=== PATIENT | male | born 1975 | race Caucasian/White ===

== ENCOUNTER 2025-05-27 00:04 | Inpatient (IN) | payer OTHER, SELFPAY ==
[2025-05-27] VITALS (33 sets, daily range): BP systolic 102–150; BP diastolic 65–129; PULSE 84–120; RESP 14–92; TEMP 36–36.6; O2SAT 18–98; BMI 29.9; BMI 29.5
--- NOTE | 2025-05-27 00:25 | EKG12_ITS ---
Test Reason : DYSRHYTHMIA Blood Pressure : */* mmHG Vent. Rate : 114 BPM Atrial Rate : 114 BPM P-R Int : 156 ms QRS Dur : 88 ms QT Int : 336 ms P-R-T Axes : 46 90 29 degrees QTcB Int : 463 ms Sinus tachycardia Possible Left atrial enlargement Rightward axis Cannot rule out Septal infarct , age undetermined Abnormal ECG Confirmed by Davey Gamez ([id number]), digital editor RANDY WOLFF ([id number]) on 05/28/2025 10:18:10 AM Referred By: CHELITA Confirmed By: Davey Gamez
[2025-05-27] MEDS: 0.9% Normal Saline (500mL Bag) 500 ML 999 ML IV (00:33)
[2025-05-27 00:36] LABS: Hematocrit 41.7 % (40-54); Hemoglobin 13.6 g/dL (13.0-16.5); Immature Granulocytes Count 0.050 X10^3/uL (0.0-0.0); Mean Corp Hgb Conc 32.6 g/dL (32-36); Mean Corpuscular Volume 81.9 fL (80-94); Mean Platelet Vol. 10.4 fl (6.2-12.0); NRBC Flagged by Analyzer 0 % (0-5); Platelet Count 313 K/mm3 (150-450); RBC Distribution Width CV 12.9 % (11.6-14.6); RBC Distribution Width SD 38.4 fl (35.1-43.9); Red Blood Count 5.09 M/mm3 (4.6-6.2); White Blood Count 11.4 K/mm3 (4.4-11.0)
[2025-05-27 00:45] LABS: Partial Thromboplast Time 27.4 Seconds (24.1-36.2); Prothrombin Time (Protime)PT. 13.9 SECONDS (11.7-14.9)
--- NOTE | 2025-05-27 00:49 | EDS_ITS ---
HPI History of Present Illness Chief Complaint: Shortness of Breath Informant: patient, spouse/S.O. and EMS Narrative Narrative: Patient is a 50-year-old male with recent history of right patellar fracture. Otherwise he states he has no medical conditions and he denies any history of lung pathology such as asthma COPD emphysema or smoking. He states since he injured his right knee he has not really been walking. He states he will still go to work but he sits in a chair with wheels and can roll around. He states that there has been no fevers or chills but starting on Tuesday noticed some mild shortness of breath that worsened today and secondary to this EMS was called. EMS reports that upon evaluation the patient was awake and alert but had increased work of breathing and his room air pulse ox was low at 88 to 89%. [facility] Medical History Knee fracture Home Medications ?Medication ?Instructions ?Recorded ?Last Taken ?Type NK 05/27/25 Unknown History Allergy/AdvReac Type Severity Reaction Status Date / Time No Known Allergies Allergy Verified 05/27/25 00:10 Surgical History (Updated 05/27/25 @ 00:06 by Chela Guzman) History of repair of hiatal hernia Social History Smoking Status: Never smoker ROS ROS ED Constitutional Constitutional ED: Denies chills or fever(s) Eyes Eyes: Denies change in vision ENT ENT ED: Denies rhinorrhea or sore throat Cardiovascular Cardiovascular: Reports palpitations and racing heartbeat; Denies chest pain Respiratory/Chest Respiratory/Chest: Reports dyspnea; Denies cough Gastrointestinal Gastrointestinal: Denies abdominal pain, diarrhea, nausea or vomiting Musculoskeletal Musculoskeletal: Reports other Details: Positive right knee pain ; Denies back pain Integumentary Denies rash Neurologic Neurologic: Denies headache(s) Hematologic/Lymphatic Hematologic/Lymphatic: Denies easy bleeding or easy bruising Allergic/Immunologic Allergic/Immunologic ED: Denies mouth swelling or tongue swelling EXAM Physical Exam Const Vital Signs: 05/27/25 00:04 05/27/25 00:10 05/27/25 00:34 Temperature 97.7 F L Temperature Source Oral Pulse Rate 120 H Respiratory Rate 23 H Respiratory Effort Normal Non-Labored Respiratory Depth Normal Respiratory Pattern Tachypnea Blood Pressure 115/80 Blood Pressure Mean 91 Pulse Ox 89 98 Oxygen Delivery Method Room Air Nasal Cannula Nasal Cannula Oxygen Flow Rate (L/min) 2 2 05/27/25 01:04 05/27/25 02:00 05/27/25 03:00 Temperature Temperature Source Pulse Rate 111 H 107 H 97 Respiratory Rate 21 H 17 16 Respiratory Effort Respiratory Depth Respiratory Pattern Blood Pressure 106/71 113/87 H 111/85 H Blood Pressure Mean 82 95 93 Pulse Ox 97 97 97 Oxygen Delivery Method Nasal Cannula Nasal Cannula Nasal Cannula Oxygen Flow Rate (L/min) 2 1 1 05/27/25 04:00 05/27/25 05:00 05/27/25 06:00 Temperature Temperature Source Pulse Rate 95 93 94 Respiratory Rate 15 14 14 Respiratory Effort Respiratory Depth Respiratory Pattern Blood Pressure 116/86 H 109/84 H 106/86 H Blood Pressure Mean 96 92 92 Pulse Ox 97 98 95 Oxygen Delivery Method Nasal Cannula Nasal Cannula Nasal Cannula Oxygen Flow Rate (L/min) 1 1 1 05/27/25 07:00 Temperature Temperature Source Pulse Rate 91 Respiratory Rate 18 Respiratory Effort Respiratory Depth Respiratory Pattern Blood Pressure 110/87 H Blood Pressure Mean 94 Pulse Ox 98 Oxygen Delivery Method Oxygen Flow Rate (L/min) Positive well nourished and well developed Constitutional Narrative: Patient appears ill and in mild to moderate respiratory distress with tachypnea and accessory muscle use General Appearance ED: well developed; Negative for pallor HEENT Reports moist mucous membranes HEENT Narrative: Normocephalic atraumatic No tongue or lip swelling no oral lesions no airway edema or compromise; no secondary findings in the posterior pharynx to suggest infection Eyes PERRL and EOMs intact bilaterally General Eye ED: Negative for pale conjunctiva or scleral icterus Neck supple and no JVD Chest Wall palpation of chest normal Resp clear to auscultation bilaterally Resp Narrative: Patient is in mild to moderate respiratory distress with tachypnea and accessory muscle use Breath sounds are diminished throughout but overall clear to auscultation without rales wheezes or rhonchi Cardio regular rhythm Rate: tachycardic and other Other Details: Tachycardic rate with regular rhythm No murmurs rubs or gallops Radial and carotid pulses are equal and symmetric GI normal to inspection, nondistended, normoactive bowel sounds, non-tender, non- distended and no masses Auscultation: normoactive bowel sounds Palpation: soft Extremity Extremity Narrative: There is asymmetric swelling of the right lower leg compared to the left. The right leg is roughly 2-3 times bigger than the left Negative Homans' sign bilaterally however All compartments are soft and compressible going against compartment syndrome Patient has mild ecchymosis to the anterior aspect of the right knee consistent with recent trauma and fracture but no overlying erythema or warmth to suggest secondary infection Neuro oriented x3, CN's II-XII intact bilaterally and no sensory deficits noted Sensorium / Orientation: alert Motor Exam: strength 5/5 throughout Psych Psych Narrative: Patient has a flat affect Skin no rashes or lesions noted Skin Narrative: Overlying soft tissue skin changes to the right knee consistent with previous injury as documented above General Skin Exam: Negative for jaundice or pallor MDM MDM MDM Narrative Medical decision making narrative: Patient arrived to the ER hypoxic at roughly 88% on room air and he does not have a known history of lung pathology or require supplemental oxygen at baseline. With his recent knee fracture and report of poor mobilization there is high concern for pulmonary embolus. In order to rule out acute blood loss anemia acute kidney injury electrolyte abnormality or PE versus pneumonia or congestive heart failure basic labs and a CTA were obtained. Labs revealed no clinically significant findings but CTA did reveal a large saddle pulmonary embolus causing heart strain. We do not have vascular surgery present in the ER at this time and therefore the hospitalist recommends we transfer to a facility with this as patient may require intervention. The patient is not hemodynamically unstable as he is only requiring 2 L of nasal cannula oxygen to keep his sats in the mid 90s and his blood pressure has remained stable and with mild hydration his heart rate has improved as well. Therefore he will be started on heparin bolus and drip secondary to the PE but do not feel the need for TNK at this time. The case was discussed with vascular surgeon Dr. Patricia. He states that based on the patient's vitals and CTA read that he feels that the patient is safe for admission to this facility where he can evaluate him later in the day to discuss need for thrombectomy. He does recommend continued monitoring and heparin infusion. The case was then discussed with the hospitalist Dr. Ricardo who evaluated the patient in the ER. Based on the significant heart strain he has concerned the patient could potentially decompensate and recommends admission to the ICU. Therefore the patient will be placed in the intensive care unit for continued monitoring and observation regarding his saddle PE with heart strain History & Record Review Discussion w/independent historian: Patient and Significant other Lab Data Attestation: I reviewed the patient's lab results. Labs: Laboratory Results - last 24 hr 05/26/25 23:45 WBC 11.4 H RBC 5.09 Hgb 13.6 Hct 41.7 MCV 81.9 MCH 26.7 L MCHC 32.6 RDW Std Deviation 38.4 RDW Coeff of Génesis 12.9 Plt Count 313 MPV 10.4 Immature Gran % (Auto) 0.400 Neut % (Auto) 60.2 Lymph % (Auto) 28.8 [place] % (Auto) 9.2 Eos % (Auto) 1.1 Baso % (Auto) 0.3 Absolute Neuts (auto) 6.9 Absolute Lymphs (auto) 3.28 Nucleated RBC % 0 PT 13.9 INR 1.1 APTT 27.4 Sodium 140 Potassium 3.6 Chloride 99 Carbon Dioxide 24.9 Anion Gap 15 BUN 12 Creatinine 1.05 Estim Creat Clear Calc 101.90 Est GFR (MDRD) Non-Af 86 BUN/Creatinine Ratio 11.7 Glucose 126 H Calcium 9.3 Magnesium 2.1 NT pro BNP II 1347 H Radiography Diagnostic Testing: Clinical Impression(s) from Imaging Studies Chest CTA 05/27/25 00:50 IMPRESSION: Saddle pulmonary embolus. Bilateral massive pulmonary emboli in the right, left pulmonary arteries, their lobar and segmental branches. Dilated main pulmonary artery. Dilated right cardiac cavities suggestive of cardiac strain. Right ventricle/left ventricle ratio is 1.2. I discussed the findings with Dr. Mitch Paredes in the emergency department at 1:45 a.m. EST. Reading Location: [place] [address] Management Discussion w/another healthcare provider: Hospitalist, Product Support Consultant and Radiologist Critical Care Time Critical Care Time: Yes Critical care time (excluding procedures): Discussing w/Patient &/or Family/Diesel Engine Erector, Discussing w/Consultants and - (Please note critical care time of 33 minutes) Discharge Plan Triage Chief Complaint: Shortness of Breath ED Provider: Mitch Paredes Dx/Rx/DC Orders Clinical Impression: Acute saddle pulmonary embolism with acute cor pulmonale, Hypoxia Prescriptions: No Action NK Primary Care Provider: Marybel Stephens NP Referrals: Kapper,Mayrbel Kelley ENGINEERING GEOLOGIST, ENGINEERING GEOLOGIST-C [Primary Care Provider] - Print Language: Ukrainian Disposition Disposition: Acute Care Hospital [facility]
--- NOTE | 2025-05-27 00:50 | CT_ITS ---
PROCEDURE: CTA CHEST W/WO CONTRAST 05/27/2025 REASON FOR EXAM: HYPOXIA / ? PE TECHNIQUE: Procedure Code: [id number] Modality: CT Procedure: CTA CHEST W/WO CONTRAST Multiplanar Sagittal and Coronal images were obtained. CONTRAST: Isovue-370 VOLUME: 100 mL One or more dose reduction techniques were used (e.g., Automated exposure control, adjustment of the mA and/or kV according to patient size, use of iterative reconstruction technique). RADIATION DOSE SUMMARY: CTDlvol: 15.41 mGy DLP: 425 mGycm COMPARISON: None. FINDINGS: Saddle pulmonary embolus. Bilateral massive pulmonary emboli in the right, left pulmonary arteries, their lobar and segmental branches. Dilated main pulmonary artery. Dilated right cardiac cavities suggestive of cardiac strain. Right ventricle/left ventricle ratio is 1.2. Mild bilateral basilar atelectatic pulmonary changes. Normal thoracic aorta and visualized great vessels. There is no demonstrated aortic dissection. Normal pericardium. Normal mediastinum. Normal hilar regions. Normal visualized trachea and bronchi. The remaining lungs are well expanded. Normal remaining pulmonary parenchyma. Normal pleura. Normal chest wall structures. Normal osseous structures. Normal visualized upper abdomen. CT/CTA Chest W/WO Contrast IMPRESSION: Saddle pulmonary embolus. Bilateral massive pulmonary emboli in the right, left pulmonary arteries, their lobar and segmental branches. Dilated main pulmonary artery. Dilated right cardiac cavities suggestive of cardiac strain. Right ventricle/left ventricle ratio is 1.2. I discussed the findings with Dr. Mitch Paredes in the emergency department at 1:45 a.m. EST. Reading Location: [place] [id number]
[2025-05-27 01:14] LABS: Anion Gap 15 (5-15); BUN 12 mg/dL (4-19); BUN/Creat Ratio 11.7 RATIO (10-20); Calcium,Total 9.3 mg/dL (7.6-11.0); Carbon Dioxide 24.9 mmol/L (21.0-32.0); Chloride 99 mmol/L (98-108); Estimated Creatinine Clearance 101.90 ml/min (50-250); Glucose 126 mg/dL (70-99); Magnesium 2.1 mg/dL (1.5-2.2); Potassium 3.6 mmol/L (3.3-5.1); Pro- Brain NATRIURETIC PEPTIDE 1347 pg/mL (<=900)
--- NOTE | 2025-05-27 02:00 | HP.PCM.HOS_ITS ---
HPI - General General Date of Admission: 05/27/25 Date of Service: 05/27/25 Chief Complaint: Dyspnea, hypoxia. HPI Narrative The patient is a 50 y/o M w/ PMHx: Recent R patellar fracture with otherwise no marked medical history however unfortunately since injuring his right knee he has been very sessile and not walking with onset Tuesday mild shortness of breath that significantly worsened over the last 24 hours more severe just prior to ED arrival prompting EMS call noting that he was awake and alert but had increased work of breathing and his pulse oximeter was 88 to 89% prompting transition to the ED for evaluation. Workup in the ED included T97.7, heart 120, BP 115/80, respiratory rate 23, initially 89% on room air with improvement to 98% on 2 L nasal cannula with most recent repeat vitals heart rate 111, BP 106/71, respiratory rate 21, 97% on 2 L nasal cannula, CBC with WC 11.4, hemoglobin 13.6, platelet 313 without marked shift, unremarkable coags, BMP with BUN/creatinine 12/1.05, GFR 86, glucose 126, magnesium 2.1, NT proBNP 87274, chest CTA with saddle pulmonary embolus with bilateral massive pulmonary emboli in the right, left pulmonary arteries, there are lobar and segmental branches, dilated main pulmonary artery, dilated right cardiac cavity suggestive of cardiac strain, RV/LV ratio 1.2. In the ED patient administered 1 L normal saline as well as heparin bolus and drip initiated. [facility] Medical History Knee fracture Home Medications ?Medication ?Instructions ?Recorded ?Last Taken ?Type NK 05/27/25 Unknown History Allergy/AdvReac Type Severity Reaction Status Date / Time No Known Allergies Allergy Verified 05/27/25 00:10 Surgical History (Updated 05/27/25 @ 00:06 by Chela Guzman) History of repair of hiatal hernia Social History Smoking Status: Never smoker Vital Signs Vital Signs Vital Signs: 05/27/25 00:04 05/27/25 00:10 05/27/25 00:34 Temperature 97.7 F L Temperature Source Oral Pulse Rate 120 H Respiratory Rate 23 H Respiratory Effort Normal Non-Labored Respiratory Depth Normal Respiratory Pattern Tachypnea Blood Pressure 115/80 Blood Pressure Mean 91 Pulse Ox 89 98 Oxygen Delivery Method Room Air Nasal Cannula Nasal Cannula Oxygen Flow Rate (L/min) 2 2 05/27/25 01:04 Temperature Temperature Source Pulse Rate 111 H Respiratory Rate 21 H Respiratory Effort Respiratory Depth Respiratory Pattern Blood Pressure 106/71 Blood Pressure Mean 82 Pulse Ox 97 Oxygen Delivery Method Room Air Oxygen Flow Rate (L/min) Weight Weight: 220 lb 7.396 oz Body Mass Index (BMI) 29.9 Results Lab / Micro Data 05/26/25 23:45 05/26/25 23:45 Labs: Laboratory Results - last 24 hr 05/26/25 23:45: WBC 11.4 H, RBC 5.09, Hgb 13.6, Hct 41.7, MCV 81.9, MCH 26.7 L, MCHC 32.6, RDW Std Deviation 38.4, RDW Coeff of Génesis 12.9, Plt Count 313, MPV 10.4, Immature Gran % (Auto) 0.400, Neut % (Auto) 60.2, Lymph % (Auto) 28.8, [place] % (Auto) 9.2, Eos % (Auto) 1.1, Baso % (Auto) 0.3, Absolute Neuts (auto) 6.9, Absolute Lymphs (auto) 3.28, Nucleated RBC % 0, PT 13.9, INR 1.1, APTT 27.4, Sodium 140, Potassium 3.6, Chloride 99, Carbon Dioxide 24.9, Anion Gap 15, BUN 12, Creatinine 1.05, Estim Creat Clear Calc 101.90, Est GFR (MDRD) Non-Af 86, BUN/Creatinine Ratio 11.7, Glucose 126 H, Calcium 9.3, Magnesium 2.1, NT pro BNP II 1347 H Imaging Radiology Impression Chest CTA 05/27/25 00:50 IMPRESSION: Saddle pulmonary embolus. Bilateral massive pulmonary emboli in the right, left pulmonary arteries, their lobar and segmental branches. Dilated main pulmonary artery. Dilated right cardiac cavities suggestive of cardiac strain. Right ventricle/left ventricle ratio is 1.2. I discussed the findings with Dr. Mitch Paredes in the emergency department at 1:45 a.m. EST. Reading Location: [place] [address]
[2025-05-27] MEDS: HEPARIN/D5w 25,000 UNITS 25,000 UNITS/250 ML IV.SOLN. 12 UNITS CONT INF (02:06)
[2025-05-27] MEDS: Heparin Injection (Vial) 5,000 UNIT/ML VIAL 4000 UNIT IV (02:07)
--- NOTE | 2025-05-27 07:47 | HP.PCM.HOS_ITS ---
HPI - General General Date of Admission: 05/27/25 Date of Service: 05/27/25 Chief Complaint: Shortness of breath/dyspnea starting Tuesday. 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 Patient said initially it was short of breath only small activity like going to bathroom and then yesterday got more persistent even at rest. Patient recently had knee fracture and after talking to Dr. Clalahan came to know it was right at tibial plateau fracture on MRI scan hairline fracture. Patient had syncopal episode at home while walking and had soft landing without major injury. Syncopal episode exact duration clear but probably short. He woke up spontaneously. Denies any chest pain. Denies any prior medical history or hospitalization. Her mother had DVT unclear about the genetic history probably may be provoked In ED, blood pressure was lower side 106/71, 180s in ED. Was tachycardia in ED, HR 120/min. Patient was hypoxic, 88-89 % on room air. He was found to have saddle embolus on CTA imaging discussed in assessment and plan [facility] Medical History Knee fracture Home Medications ?Medication ?Instructions ?Recorded ?Last Taken ?Type NK 05/27/25 Unknown History Allergy/AdvReac Type Severity Reaction Status Date / Time No Known Allergies Allergy Verified 05/27/25 00:10 Surgical History History of repair of hiatal hernia Social History Smoking Status: Never smoker ROS ROS Narrative Constitutional: Reports fatigue and weakness. No fever. HEENT: Reports systems reviewed and no addt'l complaints, except as documented Respiratory/Chest: Denies smoking. Rest as described in HPI CVS: Syncopal episode. No chest pain. Gastrointestinal: Denies coffee ground emesis, hematemesis or vomiting Genitourinary: Denies burning urination or new urinary tract symptoms Musculoskeletal: Right knee/tibial plateau fracture. 4 weeks ago Neurologic: Denies seizure-like symptoms. skin: No ulcer. No rash Endocrinology: Reports systems reviewed and no addt'l complaints, except as documented Hematologic/Lymphatic: Reports systems reviewed and no addt'l complaints, except as documented Rest 14 ROS are negative except as mentioned in HPI Vital Signs Vital Signs Vital Signs: 05/27/25 00:04 05/27/25 00:10 05/27/25 00:34 Temperature 97.7 F L Temperature Source Oral Pulse Rate 120 H Respiratory Rate 23 H Respiratory Effort Normal Non-Labored Respiratory Depth Normal Respiratory Pattern Tachypnea Blood Pressure 115/80 Blood Pressure Mean 91 Pulse Ox 89 98 Oxygen Delivery Method Room Air Nasal Cannula Nasal Cannula Oxygen Flow Rate (L/min) 2 2 05/27/25 01:04 05/27/25 02:00 05/27/25 03:00 Temperature Temperature Source Pulse Rate 111 H 107 H 97 Respiratory Rate 21 H 17 16 Respiratory Effort Respiratory Depth Respiratory Pattern Blood Pressure 106/71 113/87 H 111/85 H Blood Pressure Mean 82 95 93 Pulse Ox 97 97 97 Oxygen Delivery Method Nasal Cannula Nasal Cannula Nasal Cannula Oxygen Flow Rate (L/min) 2 1 1 05/27/25 04:00 05/27/25 05:00 05/27/25 06:00 Temperature Temperature Source Pulse Rate 95 93 94 Respiratory Rate 15 14 14 Respiratory Effort Respiratory Depth Respiratory Pattern Blood Pressure 116/86 H 109/84 H 106/86 H Blood Pressure Mean 96 92 92 Pulse Ox 97 98 95 Oxygen Delivery Method Nasal Cannula Nasal Cannula Nasal Cannula Oxygen Flow Rate (L/min) 1 1 1 05/27/25 07:00 Temperature Temperature Source Pulse Rate 91 Respiratory Rate 18 Respiratory Effort Respiratory Depth Respiratory Pattern Blood Pressure 110/87 H Blood Pressure Mean 94 Pulse Ox 98 Oxygen Delivery Method Oxygen Flow Rate (L/min) Weight Weight: 220 lb 7.396 oz Body Mass Index (BMI) 29.9 Physical Exam Narrative General: Alert, Oriented x3, Cooperative HEENT: Atraumatic, PERRLA, EOMI, Normocephalic. Oral: Oral mucosa dry no Gingival or Mucosal Lesions/ Ulcerations Neck: Supple, No JVD, Negative Carotid Bruits Chest wall/Lungs: Air entry diminished in bilateral lung bases. No crepitation/rhonchi Cardiovascular: Sinus tachycardia, P2 loud. No M/G/R Abdomen: Bowel Sounds Present, Soft, Non Tender, Non-Distended : No dysuria. No renal angle tenderness. No suprapubic tenderness. Extremities: No edema, Capillary Refill Less than 3 Seconds Skin: No rashes, No breakdown Musculoskeletal: Right knee and upper thigh on Jackson wrap bandage. Right leg bigger/swollen, tender than left leg. Neurological: Cranial nerves II-XII grossly intact, DTR 2+/4. No acute focal neurological deficit. Psych/Mental Status: Normal Affect, Appropriate. Results Lab / Micro Data 05/26/25 23:45 05/26/25 23:45 Labs: Laboratory Results - last 24 hr 05/26/25 23:45: WBC 11.4 H, RBC 5.09, Hgb 13.6, Hct 41.7, MCV 81.9, MCH 26.7 L, MCHC 32.6, RDW Std Deviation 38.4, RDW Coeff of Génesis 12.9, Plt Count 313, MPV 10.4, Immature Gran % (Auto) 0.400, Neut % (Auto) 60.2, Lymph % (Auto) 28.8, [place] % (Auto) 9.2, Eos % (Auto) 1.1, Baso % (Auto) 0.3, Absolute Neuts (auto) 6.9, Absolute Lymphs (auto) 3.28, Nucleated RBC % 0, PT 13.9, INR 1.1, APTT 27.4, Sodium 140, Potassium 3.6, Chloride 99, Carbon Dioxide 24.9, Anion Gap 15, BUN 12, Creatinine 1.05, Estim Creat Clear Calc 101.90, Est GFR (MDRD) Non-Af 86, BUN/Creatinine Ratio 11.7, Glucose 126 H, Calcium 9.3, Magnesium 2.1, NT pro BNP II 1347 H Imaging Radiology Impression Chest CTA 05/27/25 00:50 IMPRESSION: Saddle pulmonary embolus. Bilateral massive pulmonary emboli in the right, left pulmonary arteries, their lobar and segmental branches. Dilated main pulmonary artery. Dilated right cardiac cavities suggestive of cardiac strain. Right ventricle/left ventricle ratio is 1.2. I discussed the findings with Dr. Mitch Paredes in the emergency department at 1:45 a.m. EST. Reading Location: [place] [address] Assessment & Plan Assessment/Plan (1) Acute saddle pulmonary embolism with acute cor pulmonale: (2) Hypoxia: PLAN: Plan This is a 50-year-old gentleman being admitted for saddle embolus complicated with low BP and sinus tachycardia. 1. Mild hypoxia, syncope due to saddle pulmonary embolus complicated with dilated main pulmonary artery with right cardiac strain: Patient is being admitted in ICU. CTA individually reviewed and shows bilateral massive pulmonary emboli at bifurcation to right and left pulmonary arteries, the lobar and segmental branches. Dilated main pulmonary artery. RV/LV ratio 1.2. ( Normal RV LV ratio is generally less than 0.[address] and 0.6 to 1 in the echocardiographic). Patient got heparin bolus in ED. After discussion with vascular surgeon agreed on starting Lovenox 1 mg/kg body weight till Tuesday evening and then switch to IV heparin drip for anticipated catheter directed procedure on Tuesday. BNP elevated. Troponins ordered. 2D echo ordered. Vascular surgery and assistant women's rowing coach consulted. 2. Recent right tibial plateau fracture: After discussion with Dr. Callahan, orthopedic surgeon patient was seen about 3 to 4 weeks ago after he tripped and fall. After x-ray, MRI was done and found slight/hairline right tibial plateau fracture and plan on conservative management. I asked about inpatient consult/further imaging he said it is not needed therefore not consulted. Advised follow-up with [facility] after discharge as an outpatient. 3. Hyperglycemia: Glucose 126. A1c ordered. Denies any further comorbidities. Does not have PCP or recently visited any physician 4. DVT prophylaxis: Already has pulmonary embolism and on anticoagulant Living will/advanced directive/end of life care: Patient does not have living will or advanced directive. After discussion of benefits/risks procedures involved with full code, DNR CC arrest and DNR CC, the patient opted for full code. Patient does want artificial life support including intubation, tube feed, ventilator and/chest compression, central venous catheter, vasopressor and DC shock if needed Total time spent in [id number] encounter in discussion of advanced directive 17 minutes. Laboratory Results Laboratory Results 05/26/25 23:45: WBC 11.4 H, RBC 5.09, Hgb 13.6, Hct 41.7, MCV 81.9, MCH 26.7 L, MCHC 32.6, RDW Std Deviation 38.4, RDW Coeff of Génesis 12.9, Plt Count 313, MPV 10.4, Immature Gran % (Auto) 0.400, Neut % (Auto) 60.2, Lymph % (Auto) 28.8, [place] % (Auto) 9.2, Eos % (Auto) 1.1, Baso % (Auto) 0.3, Absolute Neuts (auto) 6.9, Absolute Lymphs (auto) 3.28, Nucleated RBC % 0, PT 13.9, INR 1.1, APTT 27.4, Sodium 140, Potassium 3.6, Chloride 99, Carbon Dioxide 24.9, Anion Gap 15, BUN 12, Creatinine 1.05, Estim Creat Clear Calc 101.90, Est GFR (MDRD) Non-Af 86, BUN/Creatinine Ratio 11.7, Glucose 126 H, Calcium 9.3, Magnesium 2.1, NT pro BNP II 1347 H Clinical Impression(s) from Imaging Studies Chest CTA 05/27/25 00:50 IMPRESSION: Saddle pulmonary embolus. Bilateral massive pulmonary emboli in the right, left pulmonary arteries, their lobar and segmental branches. Dilated main pulmonary artery. Dilated right cardiac cavities suggestive of cardiac strain. Right ventricle/left ventricle ratio is 1.2. I discussed the findings with Dr. Mitch Paredes in the emergency department at 1:45 a.m. EST. Charges/Coding Visit Charges Inpatient E&M: 83889 Init Hosp L3 Procedures Hospitalists Procedures: 57966 Advncd Care Plan 30 Min
--- NOTE | 2025-05-27 07:53 | PCA ---
CALLED [place] [facility] @ [id number] TO CANCEL MR [facility]AS TRANSFER SINCE DR HONG IS KEEPING HIM HERE AND DR FELIZ IS DOING A PROCEDURE ON HIM IN A COUPLE DAYS.
--- NOTE | 2025-05-27 07:56 | ECHOCS_ITS ---
Reason For Study Reason For Study: SHORTNESS OF BREATH Procedure This was a 2D Doppler, Color Flow transthoracic echocardiogram. Contrast injection was performed. Exam performed portable in ED. Left Ventricle Normal LV size. D shaped septum in systole and diastole. Mild assymetric septal hypertrophy. Left ventricular systolic function is normal. The estimated ejection fraction is 55 %. Stage 1 diastolic dysfunction. No regional wall motion abnormalities noted. Right Ventricle Severely dilated right ventricle. Severe global right ventricular systolic dysfunction. The RV free wall longitudinal strain was -7.9 % . Atria Normal left atrium. The right atrium is mildly enlarged. Mitral Valve The mitral valve is structurally normal. No prolapse or stenosis seen. Tricuspid Valve Normal tricuspid valve. Mild (1+) tricuspid valve insufficiency. Pulmonary artery systolic pressure is 40 mmHg. Aortic Valve Trisinus/trileaflet aortic valve. Pulmonic Valve Normal pulmonic valve. Great Vessels Normal sized aortic root. Pericardium/Pleural No pericardial effusion. Medication Diluted definity 3ml given slow IV push to enhance endocardial definition. MMode/2D Measurements & Calculations LVIDd: 3.7 cm IVSd: 1.2 cm LVOT diam: 2.3 cm LVIDs: 2.1 cm LVPWd: 1.0 cm RVDd: 4.9 cm FS: 43.1 % LVOT area: 4.0 cm2 asc Aorta Diam: 3.2 cm LAV(MOD-bp): 13.6 ml LVAd ap4: 29.0 cm2 LAV(MOD-bp) Indexed: 6.1 ml/m2 LVLd ap4: 7.7 cm LAV(MOD-sp2): 16.2 ml EDV(MOD-sp4): 87.3 ml LAV(MOD-sp4): 11.9 ml EDV(sp4-el): 92.6 ml LVAs ap4: 18.2 cm2 LVLs ap4: 6.7 cm ESV(MOD-sp4): 40.8 ml ESV(sp4-el): 42.1 ml EF(MOD-sp4): 53.3 % EF(sp4-el): 54.6 % LVAd ap2: 31.3 cm2 SV(MOD-sp4): 46.5 ml SV(MOD-sp2): 51.8 ml LVLd ap2: 8.1 cm SI(MOD-sp4): 20.9 ml/m2 SI(MOD-sp2): 23.3 ml/m2 EDV(MOD-sp2): 102.5 ml EDV(sp2-el): 102.7 ml LVAs ap2: 20.8 cm2 LVLs ap2: 6.9 cm ESV(MOD-sp2): 50.7 ml ESV(sp2-el): 52.8 ml EF(MOD-sp2): 50.6 % SV(sp4-el): 50.6 ml Ao sinus diam: 3.[address] Junction: 3.0 cm LA dimension(2D): 2.4 cm LA A4 area: 7.2 cm2 RA A4 area: 16.0 cm2 TAPSE: 1.4 cm Time Measurements MV dec time: 0.19 sec Doppler Measurements & Calculations MV E max lex: 35.4 cm/sec Lat Peak E' Lex: 7.4 cm/sec Med Peak E' Lex: 7.8 cm/sec MV A max lex: 57.8 cm/sec E/E' lat: 4.8 E/E' med: 4.5 MV E/A: 0.61 MV dec slope: 190.6 cm/sec2 Ao V2 max: 82.6 cm/sec LV V1 max: 60.3 cm/sec Ao max P.7 mmHg LV V1 max P.5 mmHg Ao V2 mean: 69.4 cm/sec LV V1 mean P.99 mmHg Ao mean P.0 mmHg LV V1 mean: 48.9 cm/sec Ao V2 VTI: 14.1 cm LV V1 VTI: 7.8 cm AV (velocity ratio): 0.56 ALEJO(I,D): 2.3 cm2 ALEJO(V,D): 3.0 cm2 SV(LVOT): 31.6 ml PA V2 max: 39.5 cm/sec TR max lex: 250.6 cm/sec TR max P.2 mmHg ECHO/Echo Complete W/ Contrast Interpretation Summary The estimated ejection fraction is 55 %. Stage 1 diastolic dysfunction. Mild assymetric septal hypertrophy. Severely dilated right ventricle. Severe global right ventricular systolic dysfunction. The right atrium is mildly enlarged. Mild (1+) tricuspid valve insufficiency. The study was technically difficult. Contrast injection was performed. Ordering Physician: Earle Ricardo Performed By: Briana Lamar RDCS
--- NOTE | 2025-05-27 08:31 | ED.RN ---
Stopped heparin drip per Dr Ricardo verbal order.
--- NOTE | 2025-05-27 08:31 | ED.RN ---
Cancelled repeat PT/PTT order per Dr Paredes
--- NOTE | 2025-05-27 09:27 | CON.PCM.CC_ITS ---
HPI Consult Data Date of Consult: 05/27/25 HPI Narrative Reason for Consultation: Saddle PE HPI Narrative: KALYN ABEL, is a 50 yo man with a history of recent right knee fracture who presented to the ED with complaint of dyspnea/chest discomfort. Pt reports sx began on 05/24. CTA in the ED revealed the presence of saddle PE and an elevated RV:LV ratio. At the time of my exam the pt endorsed some dyspnea. He has no prior history of thrombosis. [facility] Medical History Knee fracture Home Medications ?Medication ?Instructions ?Recorded ?Last Taken ?Type NK 05/27/25 Unknown History Allergy/AdvReac Type Severity Reaction Status Date / Time No Known Allergies Allergy Verified 05/27/25 00:10 Surgical History (Updated 05/27/25 @ 00:06 by Chela Guzman) History of repair of hiatal hernia Social History Smoking Status: Never smoker Objective Data Objective Data Vital Signs: Vital Signs Last response 3 Temperature 36.0 C L 05/27/25 08:54 Temperature Source Temporal 05/27/25 08:54 Pulse Rate 99 05/27/25 08:54 Respiratory Rate 92 H 05/27/25 08:54 Respiratory Effort Normal, Non-Labored 05/27/25 00:34 Respiratory Depth Normal 05/27/25 00:34 Respiratory Pattern Tachypnea 05/27/25 00:34 Blood Pressure 118/96 H 05/27/25 08:54 Blood Pressure Mean 103 05/27/25 08:54 Blood Pressure Source Monitor 05/27/25 08:54 Blood Pressure Position Supine 05/27/25 08:54 Blood Pressure Location Left Arm 05/27/25 08:54 Pulse Ox 18 05/27/25 08:54 Oxygen Delivery Method Room Air 05/27/25 08:54 Oxygen Flow Rate (L/min) 94 05/27/25 08:54 I&O: I&O Last 24 Hours 3 05/26/25 05/26/25 05/27/25 11:59 23:59 11:59 Intake Total 575 / 575 Balance 575 / 575 I&O: Total Stay 3 05/27/25 00:04 thru 05/27/25 08:54 Intake Total 575 Balance 575 Current Meds Ordered / Administered: Current meds ordered / Administered 3 Generic Name Dose Route Start Last Admin Trade Name Torsten PRN Reason Stop Dose Admin Acetaminophen 1,000 mg 05/27/25 09:00 Acetaminophen 500 Mg Tablet PO Q8 [facility] Enoxaparin Sodium 100 mg 05/27/25 18:00 Enoxaparin 100 Mg/Ml Syringe 1 mg/kg (100 mg) SC Q12@0600,1800 [facility] Lactated Ringer's 1,000 mls @ 7 mls/hr 05/27/25 08:54 IV 05/29/25 08:53 .Q48H [facility] Nitroglycerin 0.4 mg 05/27/25 08:54 Nitroglycerin (Inpatient Use) 0.4 Mg Tab.Subl SL Q5M PRN CARDIAC/CHEST PAIN Pantoprazole Sodium 40 mg 05/27/25 10:00 Pantoprazole Sodium 40 Mg Tablet PO DAILY [facility] Senna/Docusate Sodium 2 tablet 05/27/25 10:00 Senna/Docusate Sodium 1 Tablet PO BID [facility] Physical Exam Narrative G- ill-appearing male, alert/oriented ENT- anicteric CV- tachy, no mrg L- CTA, shallow Ab- s nt nd + bs Ext- tr edema right leg Neuro- no focal deficits Const alert Lab / Micro Data 05/26/25 23:45 05/26/25 23:45 Labs: Laboratory Results - last 24 hr 05/26/25 23:45: WBC 11.4 H, RBC 5.09, Hgb 13.6, Hct 41.7, MCV 81.9, MCH 26.7 L, MCHC 32.6, RDW Std Deviation 38.4, RDW Coeff of Génesis 12.9, Plt Count 313, MPV 10.4, Immature Gran % (Auto) 0.400, Neut % (Auto) 60.2, Lymph % (Auto) 28.8, [place] % (Auto) 9.2, Eos % (Auto) 1.1, Baso % (Auto) 0.3, Absolute Neuts (auto) 6.9, Absolute Lymphs (auto) 3.28, Nucleated RBC % 0, PT 13.9, INR 1.1, APTT 27.4, Sodium 140, Potassium 3.6, Chloride 99, Carbon Dioxide 24.9, Anion Gap 15, BUN 12, Creatinine 1.05, Estim Creat Clear Calc 101.90, Est GFR (MDRD) Non-Af 86, BUN/Creatinine Ratio 11.7, Glucose 126 H, Calcium 9.3, Magnesium 2.1, NT pro BNP II 1347 H Imaging Radiology Impression Chest CTA 05/27/25 00:50 IMPRESSION: Saddle pulmonary embolus. Bilateral massive pulmonary emboli in the right, left pulmonary arteries, their lobar and segmental branches. Dilated main pulmonary artery. Dilated right cardiac cavities suggestive of cardiac strain. Right ventricle/left ventricle ratio is 1.2. I discussed the findings with Dr. Mitch Paredes in the emergency department at 1:45 a.m. EST. Reading Location: [place] [id number] Assessment and Plan . Assessment and plan: VTE/Saddle PE with RV strain Rt knee fracture -pt meets ERS criteria for intermediate-high risk PE (submassive by ACCP guidelines) -agree with prompt initiation of AC (already done in ED) -systemic thrombolyisis is not indicated unless there is development of shock -check LE US -agree with plans to pursue catheter directed thrombectomy -convert to PO ac after procedure Critical Care Time: 39 minutes The entirety of this encounter was done via Telemedicine
--- NOTE | 2025-05-27 09:39 | VDLE_ITS ---
Reason For Study Reason For Study: Pulmonary Embolism RIGHT LEFT CFV is compressible, spontaneous, competent and CFV is compressible, spontaneous, competent, and demonstrates pulsatile venous flow. demonstrates pulsatile venous flow. Rt FV prox/mid is compressible Rt FV distal is partially compressible consistent with partial acute DVT Rt PopV, Rt T/P Trunk, Rt PTV, Rt PeroV, and Rt SoleusV are DILATED and NON COMPRESSIBLE consistent with acute DVT RT GSV in the calf, mid calf varicosity, and calf corrective therapy aide teacher are DILATED and NON COMPRESSIBLE consistent with acute SVT. Procedure This is a venous duplex using B-mode, color flow and spectral Doppler. Exam performed portable in patient room. A preliminary report was called and/or faxed to [facility]. VL/Venous Duplex US, Unilateral Interpretation Summary Acute deep vein thrombosis noted in the right femoral vein, popliteal vein, tib ioperoneal trunk vein, posterior tibial vein, peroneal vein, soleus vein. Acute superficial vein thrombosis noted in the right great saphenous vein in th e calf, calf varicosities, and corrective therapy aide teacher vein in calf. Ordering Physician: Garfield Tucker Referring Physician: Marybel Stephens Performed By: Giselle Grant, JENNIFER, RVT
[2025-05-27 10:38] LABS: Troponin T High Sensitivity 77 ng/L (<=22)
[2025-05-27] MEDS: Lactated Ringers 1,000 ML 75 ML IV (10:47)
[2025-05-27 12:18] LABS: Troponin T High Sens 2 HR 70 ng/L (<=22)
[2025-05-27 12:24] LABS: Magnesium 2.0 mg/dL (1.5-2.2)
--- NOTE | 2025-05-27 13:36 | EX.PCM.CON.S ---
Assessment & Plan Assessment/Plan (1) Acute saddle pulmonary embolism with acute cor pulmonale: PLAN: -CTA images reviewed, saddle PE with large clot burden bilateral, RV dilated with ratio 1.2 -trop and BNP elevated -mild tachycardia and low normal BP -echo consistent with RV strain -given clinical/imaging/biomarker evidence would be appropriate for thrombectomy -risks/benefits/alternatives/indications discussed -plan pulm thrombectomy 05/29 AM -lovenox today/AM tomorrow, heparin drip begin 05/28 evening HPI Consult Data Date of Consult: 05/27/25 HPI Narrative HPI Narrative: KALYN ABEL, is a 50 M who presents with CP/SOB/syncope over the past 3 days. He suffered a right tibial fracture about 4 weeks ago and has had limited mobility since that time. Beginning 2.5 weeks ago he had increasing leg pain/edema. About 3 days ago leg discomfort significantly improved about the time his pulmonary symptoms began. He denies prior VTE, no significant past medical history or routine medication/herbal uses. No recurrent epistaxis since childhood, no hematuria/melena/hematochezia. No surgical plans intended for his fracture. [facility] Medical History Knee fracture Home Medications ?Medication ?Instructions ?Recorded ?Last Taken ?Type NK 05/27/25 Unknown History Allergy/AdvReac Type Severity Reaction Status Date / Time No Known Allergies Allergy Verified 05/27/25 00:10 Surgical History History of repair of hiatal hernia Social History Smoking Status: Never smoker ROS Constitutional Constitutional: Denies chills, fever(s), frequent falls, lethargy or weakness Eyes Eyes: Denies blind spots, change in vision or loss of vision ENT HEENT: Denies bleeding gums, hoarseness or sore throat Cardiovascular Cardiovascular: Reports dyspnea on exertion and leg edema; Denies abdominal pain, bluish discoloration of hand/feet, chest pain with activity, claudication, cold extremities, cyanosis, erythema on extremities, irregular heart rhythm, leg ulcers, numbness in extremities or weakness in extremities Respiratory/Chest Respiratory/Chest: Denies cough, excessive phlegm production, shortness of breath at rest, shortness of breath with exertion or wheezing Gastrointestinal Gastrointestinal: Denies anorexia, change in stool character, constipation, diarrhea, melena or rectal bleeding Genitourinary Genitourinary: Denies dysuria or hematuria Musculoskeletal Musculoskeletal: Denies abnormal gait Integumentary Integumentary: Denies erythema, non-healing lesions or wounds Neurologic Neurologic: Denies abnormal speech, focal weakness, headache(s), loss of vision, numbness, paresthesias or sensory deficit Hematologic/Lymphatic Hematologic/Lymphatic: Denies easy bleeding, easy bruising or lymphadenopathy Physical Exam Const alert, oriented x3, no apparent distress and healthy appearing General Appearance: cooperative; Negative for combative or lethargic Orientation / Consciousness: awake Exam Limitations: no limitations HEENT Head and Scalp: normocephalic and atraumatic Eyes EOMs intact bilaterally General Eye: normal appearance of both eyes Neck full ROM General: trachea midline Resp normal respiratory effort, no use of accessory muscles and clear to auscultation bilaterally Effort and Inspection: Negative for able to speak in complete sentences, labored, stridor, uses accessory muscles or audible wheezes Cardio regular rhythm Rate: tachycardic Peripheral Pulses: brachial pulses present, radial pulses present, posterior tibial pulses present and dorsalis pedis pulses present Back/Spine Cervical Spine: cervical ROM normal Extremity full ROM, normal capillary refill and no clubbing, cyanosis or edema Skin no rashes or lesions noted and no wounds Neuro oriented x3, CN's II-XII intact bilaterally, no focal motor deficits and no sensory deficits noted Psych thought process normal, cooperative, affect normal, speech normal and activity/motor behavior normal Lab / Micro Data 05/26/25 23:45 05/26/25 23:45 Labs: Laboratory Results - last 24 hr 05/26/25 23:45: WBC 11.4 H, RBC 5.09, Hgb 13.6, Hct 41.7, MCV 81.9, MCH 26.7 L, MCHC 32.6, RDW Std Deviation 38.4, RDW Coeff of Génesis 12.9, Plt Count 313, MPV 10.4, Immature Gran % (Auto) 0.400, Neut % (Auto) 60.2, Lymph % (Auto) 28.8, [place] % (Auto) 9.2, Eos % (Auto) 1.1, Baso % (Auto) 0.3, Absolute Neuts (auto) 6.9, Absolute Lymphs (auto) 3.28, Nucleated RBC % 0, PT 13.9, INR 1.1, APTT 27.4, Sodium 140, Potassium 3.6, Chloride 99, Carbon Dioxide 24.9, Anion Gap 15, BUN 12, Creatinine 1.05, Estim Creat Clear Calc 101.90, Est GFR (MDRD) Non-Af 86, BUN/Creatinine Ratio 11.7, Glucose 126 H, Calcium 9.3, Magnesium 2.1, NT pro BNP II 1347 H 05/27/25 09:50: Magnesium 2.0, Troponin T High Sens 77 H* 05/27/25 11:25: Troponin T Hi Sens 2 Hr 70 H* Imaging Radiology Impression Chest CTA 05/27/25 00:50 IMPRESSION: Saddle pulmonary embolus. Bilateral massive pulmonary emboli in the right, left pulmonary arteries, their lobar and segmental branches. Dilated main pulmonary artery. Dilated right cardiac cavities suggestive of cardiac strain. Right ventricle/left ventricle ratio is 1.2. I discussed the findings with Dr. Mitch Paredes in the emergency department at 1:45 a.m. EST. Reading Location: [place] [id number] Echocardiogram 05/27/25 07:56 Interpretation Summary The estimated ejection fraction is 55 %. Stage 1 diastolic dysfunction. Mild assymetric septal hypertrophy. Severely dilated right ventricle. Severe global right ventricular systolic dysfunction. The right atrium is mildly enlarged. Mild (1+) tricuspid valve insufficiency. The study was technically difficult. Contrast injection was performed. Ordering Physician: Earle Ricardo Performed By: Briana Lamar RDCS Charges/Coding Visit Charges Inpatient E&M: 82070 Init Hosp L3
[2025-05-27 13:41] LABS: Troponin T High Sens 4 HR 66 ng/L (<=22)
--- NOTE | 2025-05-27 14:25 | CASEMGMT ---
NATHANIEL ORONA Assessment Face to Face with patient for initial transition planning/care coordination assessment. NATHANIEL ORONA introduced self and role at [facility], pt voices understanding. Pt is A&Ox4 and is resting comfortably in bed and is calm. Pt's at bedside. Care providers, pharmacy, and demographics verified. Admitting dx: Saddle Embolus LACE Strata: 2 PCP: Marybel Stephens Specialists: Sindy (Ortho). Pt reports that he had recent knee fracture and has been following with [facility] as an OP. Pt has not been advised to start any OP Tx at this time. Preferred Pharmacy: [facility] [place] Insurance: [employer] Prescription Benefit: Yes LNOK: [place] (W) Living Arrangements: Pt lives with his and 8 children (3 adults & 5 minors ages 13-17) in a 3 story home with a basement and 7 steps to enter the home. Pt states that he has been using crutches to manage the steps ADLs/IADLs: Indep @ [facility]. However, pt requires some assistance at this time and the pt's family has been able to support. Transportation: Hires drivers DME: Crutches, shower chair HHC/SNF: Denies hx of Pt?s goal: Home Plan: Per ICU rounds and vascular's note, plan is thrombectomy Tuesday. Pt reports that his goal ultimately is to return home with family at the time of [place]. Pt also plans to follow up with his orthopedic doctor as an OP for his knee. At this time, pt denies any further questions or concerns. CM to follow. Christiano Alvarez RN, CM
[2025-05-28] VITALS (26 sets, daily range): BP systolic 100–138; BP diastolic 75–99; PULSE 72–96; RESP 11–24; TEMP 36.2–36.4; O2SAT 92–97; BMI 29.4
[2025-05-28 04:15] LABS: Hematocrit 36.8 % (40-54); Hemoglobin 12.0 g/dL (13.0-16.5); Mean Corp Hgb Conc 32.6 g/dL (32-36); Mean Corpuscular Volume 81.6 fL (80-94); Mean Platelet Vol. 10.3 fl (6.2-12.0); Platelet Count 210 K/mm3 (150-450); RBC Distribution Width CV 13.2 % (11.6-14.6); RBC Distribution Width SD 39.1 fl (35.1-43.9); Red Blood Count 4.51 M/mm3 (4.6-6.2); White Blood Count 7.7 K/mm3 (4.4-11.0)
[2025-05-28 04:25] LABS: Prothrombin Time (Protime)PT. 15.0 SECONDS (11.7-14.9)
[2025-05-28 04:47] LABS: Anion Gap 11 (5-15); BUN 17 mg/dL (4-19); BUN/Creat Ratio 18.5 RATIO (10-20); Calcium,Total 8.8 mg/dL (7.6-11.0); Carbon Dioxide 25.8 mmol/L (21.0-32.0); Chloride 102 mmol/L (98-108); Estimated Creatinine Clearance 114.31 ml/min (50-250); Glucose 104 mg/dL (70-99); Potassium 4.1 mmol/L (3.3-5.1)
--- NOTE | 2025-05-28 09:03 | PN.HOSP_ITS ---
Reason for Visit Chief Complaint: Shortness of breath/dyspnea starting Tuesday. Right knee fracture 4 weeks ago Objective Data Objective Data Vital Signs: Vital Signs Temp Pulse Resp BP Pulse Ox O2 Del Method O2 Flow Rate 97.1 F L 81 17 108/81 H 94 Room Air 94 05/28/25 08:00 05/28/25 08:00 05/28/25 08:00 05/28/25 08:00 05/28/25 08:00 05/28/25 08:00 05/27/25 08:54 Oxygen Flow Rate (L/min) 94 Oxygen Delivery Method Room Air Weight: 217 lb 6.012 oz Body Mass Index (BMI) 29.4 Intake & Output: Intake and Output for Last 24 Hours 05/26/25 05/27/25 05/28/25 23:59 23:59 23:59 Intake Total 575 / 575 1000 / 1000 Output Total 0 / 0 350 / 350 Balance 575 / 575 650 / 650 Lab / Micro Data 05/28/25 04:00 05/28/25 04:00 Labs: Laboratory Results - last 24 hr 05/27/25 09:50: Magnesium 2.0, Troponin T High Sens 77 H* 05/27/25 11:25: Troponin T Hi Sens 2 Hr 70 H* 05/27/25 13:10: Troponin T Hi Sens 4Hr 66 H* 05/28/25 04:00: WBC 7.7, RBC 4.51 L, Hgb 12.0 L, Hct 36.8 L, MCV 81.6, MCH 26.6 L, MCHC 32.6, RDW Std Deviation 39.1, RDW Coeff of Génesis 13.2, Plt Count 210, MPV 10.3, PT 15.0 H, INR 1.2, Sodium 139, Potassium 4.1, Chloride 102, Carbon Dioxide 25.8, Anion Gap 11, BUN 17, Creatinine 0.93, Estim Creat Clear Calc 114.31, Est GFR (MDRD) Non-Af 99, BUN/Creatinine Ratio 18.5, Glucose 104 H, H emoglobin A1c 6.0 H, Calcium 8.8, TSH 1.330 Radiography Diagnostic Testing: Radiology Impression Echocardiogram 05/27/25 07:56 Interpretation Summary The estimated ejection fraction is 55 %. Stage 1 diastolic dysfunction. Mild assymetric septal hypertrophy. Severely dilated right ventricle. Severe global right ventricular systolic dysfunction. The right atrium is mildly enlarged. Mild (1+) tricuspid valve insufficiency. The study was technically difficult. Contrast injection was performed. Ordering Physician: Earle Ricardo Performed By: Briana Lamar RDCS Venous Doppler Study 05/27/25 09:39 Interpretation Summary Acute deep vein thrombosis noted in the right femoral vein, popliteal vein, tibioperoneal trunk vein, posterior tibial vein, peroneal vein, soleus vein. Acute superficial vein thrombosis noted in the right great saphenous vein in the calf, calf varicosities, and program proposals coordinator vein in calf. Ordering Physician: Garfield Tucker Referring Physician: Marybel Stephens Performed By: Giselle Grant RDCS, RVT Physical Exam Narrative Seen and examined Patient hypoxia has resolved. No tachypnea. Tachycardia also resolved. No acute issues overnight. Physical exam: General: Alert, Oriented x3, Cooperative HEENT: Atraumatic, PERRLA, EOMI, Normocephalic. Oral: Oral mucosa dry no Gingival or Mucosal Lesions/ Ulcerations Neck: Supple, No JVD, Negative Carotid Bruits Chest wall/Lungs: Air entry diminished in bilateral lung bases. No crepitation/rhonchi Cardiovascular: Sinus tachycardia, P2 loud. No M/G/R Abdomen: Bowel Sounds Present, Soft, Non Tender, Non-Distended : No dysuria. No renal angle tenderness. No suprapubic tenderness. Extremities: No edema, Capillary Refill Less than 3 Seconds Skin: No rashes, No breakdown Musculoskeletal: Right knee and upper thigh on Jackson wrap bandage. Right leg bigger/swollen, tender than left leg. Neurological: Cranial nerves II-XII grossly intact, DTR 2+/4. No acute focal neurological deficit. Psych/Mental Status: Normal Affect, Appropriate. Assessment & Plan Assessment/Plan (1) Acute saddle pulmonary embolism with acute cor pulmonale: (2) Hypoxia: PLAN: Plan This is a 50-year-old gentleman being admitted for saddle embolus complicated with low BP and sinus tachycardia. 1. Mild hypoxia, syncope due to saddle pulmonary embolus complicated with large clot burden bilateral, dilated main pulmonary artery with right cardiac strain: Patient is being admitted in ICU. CTA individually reviewed and shows bilateral massive pulmonary emboli at bifurcation to right and left pulmonary arteries, the lobar and segmental branches. Dilated main pulmonary artery. RV/LV ratio 1.2. ( Normal RV LV ratio is generally less than 0.[address] and 0.6 to 1 in the echocardiographic). Patient got heparin bolus in ED. After discussion with vascular surgeon agreed on starting Lovenox 1 mg/kg body weight till Tuesday evening and then switch to IV heparin drip for anticipated catheter directed procedure on Tuesday. BNP elevated. Troponins ordered. 2D echo ordered. Vascular surgery and chuck wagon driver consulted. 05/28: Vascular surgery consultation reviewed. Planning to move with thrombectomy on 05/29. Lovenox to stop after 2 PM dose and then heparin to start in the evening. Mild drop in hemoglobin to 13.6 to 12 g. Rest as mentioned above. 2. Recent right tibial plateau fracture: After discussion with Dr. Callahan, orthopedic surgeon patient was seen about 3 to 4 weeks ago after he tripped and fall. After x-ray, MRI was done and found slight/hairline right tibial plateau fracture and plan on conservative management. I asked about inpatient consult/further imaging he said it is not needed therefore not consulted. Advised follow-up with [facility] after discharge as an outpatient. 3. Hyperglycemia: Glucose 126. A1c ordered. Denies any further comorbidities. Does not have PCP or recently visited any physician 05/28: A1c 6.0 suggestive of prediabetes. H&H 4. DVT prophylaxis: Already has pulmonary embolism and on anticoagulant Living will/advanced directive/end of life care: Patient does not have living will or advanced directive. After discussion of benefits/risks procedures involved with full code, DNR CC arrest and DNR CC, the patient opted for full code. Patient does want artificial life support including intubation, tube feed, ventilator and/chest compression, central venous catheter, vasopressor and DC shock if needed Total time spent in [id number] encounter in discussion of advanced directive 17 minutes. Laboratory Results Laboratory Results 05/27/25 09:50: Magnesium 2.0, Troponin T High Sens 77 H* 05/27/25 11:25: Troponin T Hi Sens 2 Hr 70 H* 05/27/25 13:10: Troponin T Hi Sens 4Hr 66 H* 05/28/25 04:00: WBC 7.7, RBC 4.51 L, Hgb 12.0 L, Hct 36.8 L, MCV 81.6, MCH 26.6 L, MCHC 32.6, RDW Std Deviation 39.1, RDW Coeff of Génesis 13.2, Plt Count 210, MPV 10.3, PT 15.0 H, INR 1.2, Sodium 139, Potassium 4.1, Chloride 102, Carbon Dioxide 25.8, Anion Gap 11, BUN 17, Creatinine 0.93, Estim Creat Clear Calc 114.31, Est GFR (MDRD) Non-Af 99, BUN/Creatinine Ratio 18.5, Glucose 104 H, H emoglobin A1c 6.0 H, Calcium 8.8, TSH 1.330 Clinical Impression(s) from Imaging Studies Chest CTA 05/27/25 00:50 IMPRESSION: Saddle pulmonary embolus. Bilateral massive pulmonary emboli in the right, left pulmonary arteries, their lobar and segmental branches. Dilated main pulmonary artery. Dilated right cardiac cavities suggestive of cardiac strain. Right ventricle/left ventricle ratio is 1.2. I discussed the findings with Dr. Mitch Paredes in the emergency department at 1:45 a.m. EST. Charges/Coding Visit Charges Inpatient E&M: 96065 Subs Hosp L3
[2025-05-28] MEDS: Senna/Docusate Sodium 1 Tablet 2 TABLET PO (09:06)
[2025-05-28 18:28] LABS: Partial Thromboplast Time 34.7 Seconds (24.1-36.2)
[2025-05-28] MEDS: HEPARIN/D5w 25,000 UNITS 25,000 UNITS/250 ML IV.SOLN. 11.8 UNITS CONT INF (18:39)
[2025-05-29] VITALS (27 sets, daily range): BP systolic 95–153; BP diastolic 64–91; PULSE 69–94; RESP 12–19; TEMP 35.9–36.9; O2SAT 92–96; BMI 29.4
[2025-05-29 01:07] LABS: Partial Thromboplast Time 69.5 Seconds (24.1-36.2)
[2025-05-29] MEDS: 0.9% Normal Saline (1000mL) 1,000 ML 15 ML IV (05:16)
[2025-05-29 05:25] LABS: Hematocrit 36.0 % (40-54); Hemoglobin 11.9 g/dL (13.0-16.5); Immature Granulocytes Count 0.050 X10^3/uL (0.0-0.0); Mean Corp Hgb Conc 33.1 g/dL (32-36); Mean Corpuscular Volume 81.8 fL (80-94); Mean Platelet Vol. 10.0 fl (6.2-12.0); NRBC Flagged by Analyzer 0 % (0-5); Platelet Count 188 K/mm3 (150-450); RBC Distribution Width CV 13.2 % (11.6-14.6); RBC Distribution Width SD 39.2 fl (35.1-43.9); Red Blood Count 4.40 M/mm3 (4.6-6.2); White Blood Count 7.7 K/mm3 (4.4-11.0)
--- NOTE | 2025-05-29 07:33 | PN.HOSP_ITS ---
Reason for Visit Chief Complaint: Shortness of breath/dyspnea starting Tuesday. Right knee fracture 4 weeks ago Objective Data Objective Data Vital Signs: Vital Signs Temp Pulse Resp BP Pulse Ox O2 Del Method O2 Flow Rate 97.6 F L 76 13 121/82 H 94 Room Air 94 05/29/25 05:00 05/29/25 07:00 05/29/25 07:00 05/29/25 07:00 05/29/25 07:00 05/29/25 07:00 05/27/25 08:54 Oxygen Flow Rate (L/min) 94 Oxygen Delivery Method Room Air Weight: 217 lb 2.485 oz Body Mass Index (BMI) 29.4 Intake & Output: Intake and Output for Last 24 Hours 05/27/25 05/28/25 05/29/25 23:59 23:59 23:59 Intake Total 575 / 575 1000 / 1000 92.63 / 92.63 Output Total 0 / 0 350 / 350 250 / 250 Balance 575 / 575 650 / 650 -157.37 / -157.37 Lab / Micro Data 05/29/25 05:15 05/28/25 04:00 Labs: Laboratory Results - last 24 hr 05/28/25 16:00: APTT 34.7 05/29/25 00:45: APTT 69.5 H 05/29/25 05:15: WBC 7.7, RBC 4.40 L, Hgb 11.9 L, Hct 36.0 L, MCV 81.8, MCH 27.0, MCHC 33.1, RDW Std Deviation 39.2, RDW Coeff of Génesis 13.2, Plt Count 188, MPV 10.0, Immature Gran % (Auto) 0.700, Neut % (Auto) 62.5, Lymph % (Auto) 26.4, [place] % (Auto) 7.8, Eos % (Auto) 2.2, Baso % (Auto) 0.4, Absolute Neuts (auto) 4.8, Absolute Lymphs (auto) 2.02, Nucleated RBC % 0 Physical Exam Narrative Seen and examined Patient had catheter directed clot aspiration from pulmonary artery today Patient hypoxia has resolved. No tachypnea. Tachycardia also resolved. No acute issues overnight. Physical exam: General: Alert, Oriented x3, Cooperative HEENT: Atraumatic, PERRLA, EOMI, Normocephalic. Oral: Oral mucosa moist. no Gingival or Mucosal Lesions/ Ulcerations Neck: Supple, No JVD, Negative Carotid Bruits Chest wall/Lungs: Air entry diminished in bilateral lung bases. No crepitation/rhonchi Cardiovascular: Sinus tachycardia, P2 loud. No M/G/R Abdomen: Bowel Sounds Present, Soft, Non Tender, Non-Distended : No dysuria. No renal angle tenderness. No suprapubic tenderness. Extremities: No edema, Capillary Refill Less than 3 Seconds Skin: No rashes, No breakdown Musculoskeletal: Right knee and upper thigh on Jackson wrap bandage. Right leg bigger/swollen, tender than left leg. Neurological: Cranial nerves II-XII grossly intact, DTR 2+/4. No acute focal neurological deficit. Psych/Mental Status: Normal Affect, Appropriate. Assessment & Plan Assessment/Plan (1) Acute saddle pulmonary embolism with acute cor pulmonale: (2) Hypoxia: PLAN: Plan This is a 50-year-old gentleman being admitted for saddle embolus complicated with low BP and sinus tachycardia. 1. Mild hypoxia, syncope due to saddle pulmonary embolus complicated with large clot burden bilateral, dilated main pulmonary artery with right cardiac strain: Patient is being admitted in ICU. CTA individually reviewed and shows bilateral massive pulmonary emboli at bifurcation to right and left pulmonary arteries, the lobar and segmental branches. Dilated main pulmonary artery. RV/LV ratio 1.2. ( Normal RV LV ratio is generally less than 0.[address] and 0.6 to 1 in the echocardiographic). Patient got heparin bolus in ED. After discussion with vascular surgeon agreed on starting Lovenox 1 mg/kg body weight till Tuesday evening and then switch to IV heparin drip for anticipated catheter directed procedure on Tuesday. BNP elevated. Troponins ordered. 2D echo ordered. Vascular surgery and marketing performance analyst consulted. 05/28: Vascular surgery consultation reviewed. Planning to move with thrombectomy on 05/29. Lovenox to stop after 2 PM dose and then heparin to start in the evening. Mild drop in hemoglobin to 13.6 to 12 g. Rest as mentioned above. 05/29: No acute issues overnight. Patient on room air. Heart rate and BP controlled. Discussed with Dr. Patricia.Patient initiated pulmonary angiogram and aspiration of clot from both right and left pulmonary artery predominantly in lower lobe branches. There is improvement in different indices including pulmonary artery pressure 40/11 to 28/10, heart rate 91-71/min, pulse ox 92% on room air to 98% on room air pre and post procedure. IV heparin drip is resumed 5 cc/h till 430 and then return to preprocedure rate of 10.8 cc/h. If patient does not have any acute incidence of bleeding then probably oral anticoagulant full dose Eliquis 10 mg twice daily for 1 week and then 5 mg twice daily to continue. 2. Recent right tibial plateau fracture: After discussion with Dr. Callahan, orthopedic surgeon patient was seen about 3 to 4 weeks ago after he tripped and fall. After x-ray, MRI was done and found slight/hairline right tibial plateau fracture and plan on conservative management. I asked about inpatient consult/further imaging he said it is not needed therefore not consulted. Advised follow-up with [facility] after discharge as an outpatient. 3. Hyperglycemia: Glucose 126. A1c ordered. Denies any further comorbidities. Does not have PCP or recently visited any physician 05/28: A1c 6.0 suggestive of prediabetes. H&H 4. DVT prophylaxis: Already has pulmonary embolism and on anticoagulant Living will/advanced directive/end of life care: Patient does not have living will or advanced directive. After discussion of benefits/risks procedures involved with full code, DNR CC arrest and DNR CC, the patient opted for full code. Patient does want artificial life support including intubation, tube feed, ventilator and/chest compression, central venous catheter, vasopressor and DC shock if needed Total time spent in [id number] encounter in discussion of advanced directive 17 minutes. Laboratory Results Laboratory Results 05/28/25 16:00: APTT 34.7 05/29/25 00:45: APTT 69.5 H 05/29/25 05:15: WBC 7.7, RBC 4.40 L, Hgb 11.9 L, Hct 36.0 L, MCV 81.8, MCH 27.0, MCHC 33.1, RDW Std Deviation 39.2, RDW Coeff of Génesis 13.2, Plt Count 188, MPV 10.0, Immature Gran % (Auto) 0.700, Neut % (Auto) 62.5, Lymph % (Auto) 26.4, [place] % (Auto) 7.8, Eos % (Auto) 2.2, Baso % (Auto) 0.4, Absolute Neuts (auto) 4.8, Absolute Lymphs (auto) 2.02, Nucleated RBC % 0 05/29/25 08:50: APTT 59.2 H 05/29/25 11:17: Activated Clotting Time 227 H Clinical Impression(s) from Imaging Studies Chest CTA 05/27/25 00:50 IMPRESSION: Saddle pulmonary embolus. Bilateral massive pulmonary emboli in the right, left pulmonary arteries, their lobar and segmental branches. Dilated main pulmonary artery. Dilated right cardiac cavities suggestive of cardiac strain. Right ventricle/left ventricle ratio is 1.2. I discussed the findings with Dr. Mitch Paredes in the emergency department at 1:45 a.m. EST. Charges/Coding Visit Charges Inpatient E&M: 98139 Subs Hosp L3
[2025-05-29 09:28] LABS: Partial Thromboplast Time 59.2 Seconds (24.1-36.2)
[2025-05-29 12:59] LABS: ACT Activated Clotting Time 227 sec (74-137)
[2025-05-29] MEDS: 0.9% Normal Saline (1000mL) 1,000 ML 75 ML IV (13:21)
--- NOTE | 2025-05-29 18:19 | PCM.OPRPT ---
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 Patricia, Dr. Barnard. 2 physicians performed the procedure in collaboration given complexity of the procedure and the patient's acute pathology. HPI: Patient is a 50-year-old male with limited mobility secondary to right tibia fracture. He developed abrupt onset of shortness of breath and syncope and was found to have submassive PE and RV strain secondary to bilateral pulmonary emboli with a saddle component. He had elevated biomarkers, RV dysfunction on echo and dilated RV with ratio greater than [address] scan and exertional tachycardia and hypoxia. He presents now for pulmonary angiogram with thrombectomy. Description of procedure: Upon obtaining informed consent and verification correct patient procedure site the patient was taken to the [facility] where he was positioned prepped and draped in usual sterile fashion. Timeout was then performed and conscious sedation ministered Versed and fentanyl. Skin overlying the right common femoral vein was Nestabs 1% lidocaine the vessel accessed under ultrasound guidance with micropuncture needle wire. This then exchanged for micropuncture sheath which hand-injection ilio caval venogram was performed revealing satisfactory positioning with no extravasation or dissection and a patent right iliac vein. Through the micropuncture sheath a J-wire was advanced the micropuncture sheath exchanged for a 8 [place] sheath. Through the 8 [place] sheath a [place] wire and catheter were advanced with the balloon inflated advancing the inferior vena cava and ultimately into the right atrium and right ventricle. This was then navigated into the pulmonary artery with final positioning in the distal right pulmonary artery. The [place] balloon was then deflated and the catheter withdrawn and the pigtail catheter advanced over the wire. Through the pigtail catheter subtraction pulmonary gram was performed which revealed resolution of the saddle component of the pulmonary embolism with remaining right lower lobe and upper lobe with significant proximal thrombus as well as left lower lobe significant proximal thrombus. Pulmonary artery pressures were obtained which correlated with those calculated on the echo and were abnormal/elevated. It was felt that this warranted thrombectomy so a Boris wire was advanced through the pigtail and the pigtail exchanged for a JR4 catheter. This was then navigate into the right lower lobe vasculature advancing the wire to the diaphragmatic shadow. The wire was then withdrawn and exchanged for a short tipped Amplatz wire. The catheter then withdrawn and the 8 [place] sheath exchanged for the Inari Flowtriever sheath advanced in the position in the superior aspect of the inferior vena cava. Through this the T24 aspiration catheter was advanced and positioned in the proximal lower lobar pulmonary artery. Multiple aspirations were then performed with significant thrombus return. Further aspirations were performed after repositioning more centrally again with more thrombus obtained. Once no further thrombus was returned to repeat pulmonary angiography via the catheter revealed satisfactory clearance of the lower lobe thrombus with some residual truncus anterior thrombus. Utilizing the JR4 catheter and the Boris wire we then renavigated into this branch and advanced the T16 telescoping through the T24. Multiple aspirations then performed with additional thrombus returned until there was no further return. Repeat imaging revealed resolution of this remaining thrombus with no further significant proximal thrombus. We then navigated into the left pulmonary artery and hand-injection pulmonary angiogram was performed confirming significant lower lobe thrombus. Utilizing the [place] wire and JR4 catheter we navigated into the inferior lobe pulmonary artery and advanced the catheter to the diaphragmatic shadow. The wire was then exchanged for an Amplatz wire and the T20 curve was then telescoped through the T24 and positioned in the inferior lobe pulmonary artery. Multiple aspirations were then performed with further thrombus returned to there is no further thrombus obtained. Repeat imaging revealed satisfactory resolution of the lower lobe thrombus with no significant remaining proximal thrombus. Repeat pulmonary artery measurement was obtained which showed significant reduction in PA pressure. Wires and catheters was then withdrawn and a 2-0 silk pursestring placed at the access site followed by sheath removal and manual pressure until hemostasis was observed. The patient was then taken to the intensive care unit for ongoing medical care as well as hemodynamic and vascular monitoring. Surgical Findings: See above Complications Complications: No
[2025-05-29] MEDS: HEPARIN/D5w 25,000 UNITS 25,000 UNITS/250 ML IV.SOLN. 10.6 UNITS CONT INF (22:16)
--- NOTE | 2025-05-29 22:24 | NURSING ---
heparin gtt: heparin gtt noticed to be running at 10.8 units which 10.6 mls/hour on the pump. mar documentation last shows a decrease to 5 units at 1300. order reviewed with charge nurse mini and pump settings compared to mar. determined that per md order to restart heparin post procedure at rate of 10.8 units was adjusted on pump correctly. mar updated to reflect changes.
[2025-05-29 22:37] LABS: Partial Thromboplast Time 55.2 Seconds (24.1-36.2)
[2025-05-30] VITALS (17 sets, daily range): BP systolic 87–132; BP diastolic 53–97; PULSE 66–90; RESP 10–20; TEMP 36.2–36.7; O2SAT 93–99; BMI 29.5
[2025-05-30] MEDS: 0.9% Normal Saline (1000mL) 1,000 ML 15 ML IV (02:30)
[2025-05-30] MEDS: 0.9% Normal Saline (1000mL) 1,000 ML 75 ML IV (02:31)
[2025-05-30 05:45] LABS: Hematocrit 32.1 % (40-54); Hemoglobin 10.8 g/dL (13.0-16.5); Mean Corp Hgb Conc 33.6 g/dL (32-36); Mean Corpuscular Volume 81.5 fL (80-94); Mean Platelet Vol. 10.3 fl (6.2-12.0); Platelet Count 175 K/mm3 (150-450); RBC Distribution Width CV 13.0 % (11.6-14.6); RBC Distribution Width SD 38.4 fl (35.1-43.9); Red Blood Count 3.94 M/mm3 (4.6-6.2); White Blood Count 7.6 K/mm3 (4.4-11.0)
[2025-05-30 05:54] LABS: Prothrombin Time (Protime)PT. 13.9 SECONDS (11.7-14.9)
[2025-05-30 05:55] LABS: Partial Thromboplast Time 60.9 Seconds (24.1-36.2)
[2025-05-30 06:34] LABS: Anion Gap 9 (5-15); BUN 13 mg/dL (4-19); BUN/Creat Ratio 15.2 RATIO (10-20); Calcium,Total 8.6 mg/dL (7.6-11.0); Carbon Dioxide 24.6 mmol/L (21.0-32.0); Chloride 104 mmol/L (98-108); Estimated Creatinine Clearance 126.72 ml/min (50-250); Glucose 143 mg/dL (70-99); Potassium 3.9 mmol/L (3.3-5.1)
--- NOTE | 2025-05-30 07:47 | PCM.DC.SUM ---
Providers Date of Admission: 05/27/25 Date of Discharge: 05/30/25 Primary Care Physician: Marybel Stephens, ROSA-C Consultations 05/27/25 08:54 Consult: Fishing Manager / Pulmonary Medicine Routine Consulting Provider: Intensivists/Pulmonary Med Reason for Consult: saddle PE, LOW BP, Hypoxia EMERGENT Consult: No Notified: Yes Date Notified: 05/27/25 Time Notified: 07:50 Method of Notification: TIQR Consult: Vascular Surgery Routine Consulting Provider: Garry Patricia Reason for Consult: SADDLE EMBOLUS EMERGENT Consult: No Notified: Yes Date Notified: 05/27/25 Time Notified: 07:56 Method of Notification: Verbal Reason For Visit: SADDLE EMBOLUS Diagnosis Discharge Diagnosis (1) Acute saddle pulmonary embolism with acute cor pulmonale: Status: Acute Code(s): I26.02 - Saddle embolus of pulmonary artery with acute cor pulmonale (2) Hypoxia: Status: Acute Code(s): R09.02 - Hypoxemia Medications at Discharge Home Medications apixaban 5 mg (74 tabs) tablets in a dose pack (EliPhoneplus DVT-PE Treat 30D Start) See Rx Instructions PO .COMPLEX #74 tabs 05/30/25 Hospital Course Operations - (Pulmonary angiogram with bilateral pulmonary artery thrombectomy) Procedures 2-D Echocardiogram, EKG and - (Venous Dopplers LE/ CTA) Summary of Care Provided Minutes Spent on Discharge: 38 Hospital Course: Mr. Echevarria is a 50-year-old Alex white male who presented to the emergency department at [facility] on 05/27/2025 with chief complaint of shortness of breath that started on the Tuesday prior to presentation. Patient had an acute right knee fracture of the tibial plateau about 4 weeks ago and is following up with orthopedic surgery as an outpatient. He is currently nonweightbearing. Patient reported initially he was short of breath with exertion however the day prior to presentation his shortness of breath was more persistent at rest. He has syncopal episode prior to presentation while he was walking. He had no injury with his fall. He woke up spontaneously and mental status was at baseline immediately. He denied any chest pain or pleuritic pain on presentation. He has a family history of DVT. Vital signs on presentation showed temperature 97.7, heart rate 120, respiratory was 23, blood pressure was 115/80 and pulse ox was 89% on room air. CBC showed a mild anemia with a hemoglobin of 12 but was otherwise unremarkable. Coags were unremarkable. Chemistry panel was unremarkable other than some mild hyperglycemia with a blood glucose of 126 nonfasting. We did obtain a hemoglobin A1c and was found to be 6.0. Magnesium was normal. Initial troponin was 77 with a delta of 70 and a 4-hour troponin 66. proBNP was 1347. TSH was within normal limits. CTA of his chest was performed and showed saddle pulmonary embolus with massive bilateral pulmonary emboli in the right, left main pulmonary arteries and there were lobar and segmental branches as well as a dilated main pulmonary artery and a dilated RV. Lower extremity Doppler showed acute DVT in the right femoral vein, popliteal vein, tibioperoneal trunk, posterior tibial vein, peroneal vein and soleal vein as well as a acute superficial thrombosis in the right greater saphenous vein, left calf varicosities and life insurance agent vein in the calf. Given his extensive DVT/PE he was admitted to the intensive care unit, placed on heparin drip, and an echocardiogram was ordered with consultation to vascular surgery. EF was 55% with stage I diastolic dysfunction and mild asymmetric septal hypertrophy along with a severely dilated RV and global RV dysfunction with mild right atrial enlargement. Given these findings in conjunction with positive biomarkers he was felt to be appropriate for thrombectomy and taken for pulmonary thrombectomy on 05/29/[address] Patricia. Patient did well with the procedure and postoperatively was on room air. His hemoglobin remained stable postprocedure and we were able to transition him from a heparin drip to oral anticoagulation with Eliquis. He initially will be on Eliquis 10 mg p.o. twice daily for 7 days then transition to 5 mg p.o. twice daily. This was provoked so he should have a total of at least 6 months given the size of his pulmonary embolus however given the severity lifetime anticoagulation will likely be considered by vascular surgery as well. He does have a small stitch in his groin and this will be removed in a week and he was asked to follow-up with vascular surgery at that time. With regards to his tibial plateau fracture he has follow-up already set up with orthopedic surgery next week. He is to follow-up with his primary care physician as needed. Prescription for starter pack of Eliquis was sent at discharge and patient was able to be discharged home on room air on 05/30/2025. Ambulatory pulse ox was done prior to discharge. Discharge diagnoses: Acute pulmonary emboli with cor pulmonale Right lower extremity VTE Right tibial plateau fracture Immobility secondary to fracture Acute anemia-stable Troponin elevation secondary to cardiac strain from severe PE Acute RV dysfunction secondary to PE Insulin resistance-A1c 6.0 Physical Exam Const alert, oriented x3, no apparent distress, no limitations and well nourished; Negative for average body habitus Constitutional Narrative: Overweight, very pleasant, middle-aged, Alex male, sitting up in bed, appears comfortable, nontoxic, at bedside General Appearance: cooperative, comfortable, well kempt and well developed Exam Limitations: no limitations Nutritional Appearance: overweight HEENT normocephalic, head/scalp atraumatic, hearing grossly normal bilaterally and moist oral mucous membranes HEENT Narrative: Dentures in place, Mallampati 2, no thrush Eyes conjunctivae normal Eyes Narrative: No scleral icterus Neck no lymphadenopathy and supple Neck Narrative: Trachea midline Resp normal respiratory effort, no retractions, no use of accessory muscles and clear to auscultation bilaterally Auscultation: Negative for rales, rhonchi or wheezes Cardio regular rate, regular rhythm, S1 normal heart sound, S2 normal heart sound, no murmurs, no rub, no gallops and no clicks GI normal to inspection, nondistended, normoactive bowel sounds, soft to palpation and non-tender Extremity no clubbing, cyanosis or edema Extremity Narrative: 2+ pedal and radial pulses Skin no rashes or lesions noted, no wounds, skin turgor normal and no jaundice Neuro oriented x3, no focal motor deficits and no sensory deficits noted Neuro Narrative: Limited movement right lower extremity due to fracture but no focal deficits Psych affect normal Psych Narrative: Very pleasant, interacts appropriately Weight / BMI Weight Weight: 98.883 kg Body Mass Index (BMI) 29.5 ABG / Lab / Microbiology Data 05/30/25 05:22 05/30/25 05:22 Laboratory: Laboratory Results - last 24 hr 05/29/25 22:20: APTT 55.2 H 05/30/25 05:22: WBC 7.6, RBC 3.94 L, Hgb 10.8 L, Hct 32.1 L, MCV 81.5, MCH 27.4, MCHC 33.6, RDW Std Deviation 38.4, RDW Coeff of Génesis 13.0, Plt Count 175, MPV 10.3, PT 13.9, INR 1.0, APTT 60.9 H, Sodium 137, Potassium 3.9, Chloride 104, Carbon Dioxide 24.6, Anion Gap 9, BUN 13, Creatinine 0.84, Estim Creat Clear Calc 126.72, Est GFR (MDRD) Non-Af 106, BUN/Creatinine Ratio 15.2, Glucose 143 H, Calcium 8.6 D/C Instructions Discharge Activity: Return to Normal Activity, Use Walker and Use Crutches Weight Bearing Status: No weight bearing (Right lower extremity) DC O2, CPAP, BIPAP Needs Home O2 Discharge instructions: No Meaningful Use Info Meaningful Use Meaningful Use Diagnoses (Choose all that apply): VTE VTE Anticoag overlap given w/in hospital stay or rx'd at dc?: No Pt receive overlap for 5 days?: No Reason overlap not ordered, prescribed, or given for 5 days: Treatment Not Indicated Discharge Plan Admission Admit Date/Time: 05/27/25 07:44 Primary Reason for Your Visit: Shortness of breath Attending Provider: Johnna Guzman Primary Care Provider: Marybel Stephens NP Consulting Providers: Higinio Wilson; Jackson Wheat; Nagi Valero; Odilon Philippe; Garfield Tucker; Mauricio Hinojosa; Stanislav Chase; Brittany Melara; Robert Solis; Jorge L Perkins; Mitch Samayoa; Ruby Kingston; Kaley Myles; Den,Juliet; Lazara,Ken; Cait,Helio; Gunner,Flaco; Queenie,Richard; Jerry Lange; Juan Antonio Peñaloza; Yifan Reyes; Faisal Collado; Mehdi Hussein; Luc Cardona; Garry Patricia; Earle Ricardo Instructions Additional Instructions / Restrictions: 1. Please take anticoagulation as instructed until instructed to discontinue 2. Please follow-up with the doctor regarding your leg as already scheduled. Discharge Orders/Prescriptions Prescriptions: New Eliquis DVT-PE Treat 30D Start 5 mg (74 tabs) tablets,dose pack See Rx Instructions .ROUTE .COMPLEX Qty: 74 0RF Rx Instructions: orally per package directions Referrals / Follow Up: Garry Patricia MD [Med Staff - Active Staff] - Within 1 Week (The office should call you to set up an appointment if not please call) Marybel Stephens MARINE UNDERWRITER, MARINE UNDERWRITER-C [Primary Care Provider] - See Referral Note (As needed) Disposition Disposition (needs filled in before D/C Order can be placed): Home, Self Care Charges/Coding Visit Charges Inpatient E&M: 30727 Disch Hosp >30min
[2025-05-30] MEDS: APIXABAN 5 MG TABLET 10 MG PO (09:34)
[2025-05-30] MEDS: Senna/Docusate Sodium 1 Tablet 2 TABLET PO (09:35)
--- NOTE | 2025-05-30 10:36 | CASEMGMT ---
Addendum entered by Adele Alvarez 05/30/25 13:39: [facility] calls this RN CM back and states that the medication cost is over 800$. Pt updated and educated about the once per lifetime savings card. Pt states that he would like this to be applied. [facility] was able to successfully apply the savings card and has a 0$ co-pay. Pt thanks this RN CM and denies further questions, concerns, or needs. Pt and pt's reports that they plan to sweet pickled fruit maker the rx on the way out to their furniture delivery driver who will be here at 1400. Pt's RN updated. No further needs identified. Addendum entered by Adele Alvarez 05/30/25 13:18: Pt has an order for DC placed with new Rx for Eliquis. TC to [facility] who states that they are still processing the order and will call this RN CM back. Original Note: Hospitalist reports to this development writer that the pt will be discharging today. Per the manager steel, pt does not qualify for home oxygen. RN CM to the pt room at this time, pt's at bedside. Pt states that he was able to ambulate well with his walker and denies the need for HHC or OP Tx. Pt reports that he plans to follow up with vascular and ortho as an OP. Pt states that he plans to hire a furniture delivery driver today and denies transportation needs. Hospitalist reports that the pt will have a new Rx for Eliquis. CM to follow for cost. Pt denies further questions or concerns at this time. CM to follow.
== END 2025-05-30 14:00 | disposition home or self-care (01) | DRG 164 ==
LOC: ED 07:43 → ICU 08:02
PROVIDERS: Surgery Trauma Surgery; Admitting Provider Internal Medicine; Emergency Provider Emergency Medicine; PCP Nurse Practitioner Family; Visit Provider Internal Medicine
DX: I26.02 Saddle embolus of pulmonary artery with acute cor pulmonale (principal); I24.89 Other forms of acute ischemic heart disease; I82.411 Acute embolism and thrombosis of right femoral vein; I82.431 Acute embolism and thrombosis of right popliteal vein; I82.441 Acute embolism and thrombosis of right tibial vein; I82.451 Acute embolism and thrombosis of right peroneal vein; E88.819 Insulin resistance, unspecified; I27.20 Pulmonary hypertension, unspecified; D64.9 Anemia, unspecified; I82.461 Acute embolism and thrombosis of right calf muscular vein; R73.9 Hyperglycemia, unspecified; E66.3 Overweight; Z68.29 Body mass index [BMI] 29.0-29.9, adult
CPT/HCPCS: 36013; 37184; 37185; 71275; 76937; 80048; 83036; 83735; 83880; 84443; 84484; 85025; 85027; 85347; 85610; 85730; 93005; 93306; 93971; 94668; 94762; 97161; 99152; 99153; 99285; C1757; C1769; C1894; Q9957; Q9967; A4216; C1751; C8929